=== PATIENT | male | born 1965 | race Caucasian/White ===

== ENCOUNTER 2023-02-19 09:25 | Emergency (ER) | payer OTHER, SELFPAY ==
[2023-02-19 09:40] VITALS: BP 138/84; PULSE 71; RESP 14; TEMP 36.7; O2SAT 96
--- NOTE | 2023-02-19 09:46 | ED.EAR ---
HPI - Ear Problem General Chief complaint: Ear Stated complaint: right ear pain Source: patient Mode of arrival: ambulatory Limitations: no limitations History of Present Illness HPI Narrative: 57-year-old male presented for complaint of right ear pain. Onset 2 days. Endorses pain radiating into the right neck and jaw. Reports occasional tinnitus. Denies ear drainage, dizziness, sinus congestion or drainage trauma nausea vomiting, fevers or chills. Used one dose of antibiotic drops from sig other's previous prescription. MD Complaint: ear pain Related Data Home Medications Medication Instructions Recorded Confirmed atorvastatin 80 mg tablet 80 mg PO DAILY 02/19/23 02/19/23 losartan 25 mg tablet 25 mg PO DAILY 02/19/23 02/19/23 Allergies Allergy/AdvReac Type Severity Reaction Status Date / Time No Known Allergies Allergy Verified 02/19/23 10:00 Review of Systems Review of Systems: CONSTITUTIONAL: Denies malaise, chills, or fever. EYES: Denies visual changes, redness, or discharge. ENT: Denies rhinorrhea, congestion, sinus pain, and sore throat. Reports ear pain CARDIOVASCULAR: Denies chest pain, palpitations, or edema. RESPIRATORY: Denies cough or dyspnea. GASTROINTESTINAL: Denies abdominal pain, nausea, vomiting, diarrhea SKIN: Denies rash or itching. MUSCULOSKELETAL: Denies myalgia. NEUROLOGIC: Denies headache. All systems reviewed & are unremarkable except as noted in HPI and below PMFSH Past Medical History Medical History (Updated 02/19/23 @ 10:02 by Kesha Yung APRN) Diabetes Surgical History Surgical History (Updated 02/19/23 @ 09:48 by Kesha Yung APRN) History of nasal surgery Comments At time of signature, agree with nursing past medical, surgical, social and family history. There is no relevant family history pertinent to the presenting complaint Exam Narrative: GENERAL: Well-appearing, and in no acute distress. HEAD: Normocephalic EYES: PERRLA, conjunctivae clear ENT: Nares clear. Mucous membranes moist. Left TM pearly timmons with dull light reflex; Right canal erythematous with excess cerumen; mild right tragal tenderness. Oropharynx not erythematous without lesions. no drooling, no hoarseness, no trismus, uvula midline. NECK: Supple. No lymphadenopathy CHEST: Clear to auscultation, breath sounds equal. No wheezing, rhonchi, rales, or stridor. No respiratory distress, speaks in full sentences. HEART: Regular rate and rhythm. No murmur heard. SKIN: Warm, dry, no rash. NEURO: Alert and oriented x3. PSYCH: Normal mood and affect Course Course Emergency Course: Patient is aware of diagnosis, understands and agrees to treatment plan. Anticipatory guidance given. Patient agrees to follow-up as directed and is aware of reasons to seek care at the emergency department. Portions of this record may have been created with voice recognition software Level of Care: Express Care Visit Vital Signs Vital signs: Reviewed Procedures Ear Wax Removal Right Ear: Ear Wax Removal Date: 02/19/23 Cerumenolytic Used: other ( Equal parts warm water and hydrogen peroxide) Results: Re-examined: cerumen removed completely TM Examination: TM(s) erythematous Ear Canal Exam: atraumatic Patient Tolerated Procedure: well and no complications Technique: ear canal irrigated and ear canal curetted Additional Comments: large amount of soft cerumen removed from canal using irrigation and curette. Patient reported improvement in pain. TM erythematous, canal erythematous c/w AOM and OE. Medical Decision Making MDM Narrative Medical decision making narrative: large amount of soft cerumen removed from right canal using irrigation and curette. Patient reported improvement in pain. TM erythematous, canal erythematous c/w AOM and OE. Rxs reviewed. Advised supportive measures and signs/symptoms to go to the ER. Patient is appropriate for ou
[2023-02-19 11:25] VITALS: BP 138/84; PULSE 71; RESP 14; TEMP 36.7; O2SAT 96
== END 2023-02-19 10:06 | disposition home or self-care (01) ==
PROVIDERS: Emergency Provider Nurse Practitioner Family
DX: H60.91 Unspecified otitis externa, right ear (principal); H66.91 Otitis media, unspecified, right ear; H61.21 Impacted cerumen, right ear; E11.9 Type 2 diabetes mellitus without complications
CPT/HCPCS: 69210; 99213; G0463

== ENCOUNTER 2023-11-17 11:28 | Outpatient (CLI) | payer OTHER, SELFPAY ==
--- NOTE | 2023-11-17 13:17 | ECG_ITS ---
Test Date: 2023-11-17 13:32:21 Measurements Intervals [place] Rate: 78 P: 38 OH: 177 QRS: -14 QRSD: 103 T: 48 QT: 368 QTc: 421 Interpretive Statements SINUS RHYTHM LOW QRS VOLTAGE IN PRECORDIAL LEADS [QRS DEFLECTION < 1.0 mV IN CHEST LEADS] BORDERLINE ECG No previous ECG available for comparison Electronically Signed On 11-17-2023 15:27:39 CDT by Vincent Hart M.D.
[2023-11-17 13:52] LABS: Anion Gap 8 mmol/L (4-12); Blood Urea Nitrogen 19 mg/dL (9-20); Calcium 8.8 mg/dL (8.4-10.2); Carbon Dioxide 25 mmol/L (22-30); Chloride 105 mmol/L (98-107); Estimated Glomerular Filt Rate 57; Glucose 156 mg/dL (65-110); Sodium 138 mmol/L (137-145)
== END 2023-11-17 11:29 | disposition home or self-care (01) ==
PROVIDERS: Anesthesiology; Visit Provider Podiatrist Foot & Ankle Surgery
DX: E11.9 Type 2 diabetes mellitus without complications (principal); R94.31 Abnormal electrocardiogram [ECG] [EKG]
CPT/HCPCS: 36415; 80048; 93005

== ENCOUNTER 2023-11-23 01:37 | Day surgery (SDC) | payer OTHER, SELFPAY ==
[2023-11-16 11:51] VITALS: BMI 40.8
--- NOTE | 2023-11-16 11:58 | PC.NURSE ---
Report to the Outpatient Waiting Room, entrance under the green pavilion located off [facility], at time _0900_ on date _[id number]_. Planned Procedure Time: _1100_. Time changes happen often and if your time is changed the preop area will call you the afternoon before. - You and your visitor will be asked to self-screen and do not enter if you have any COVID symptoms. - A mask is optional within the hospital at this time. Patients may have clear liquids (water, carbonated beverages, clear teas, apple juice) until 3 hours prior to surgery with a maximum of 20 ounces. - No food from midnight until time of surgery Take the following medications with a SIP of water the morning of surgery: ___None DO NOT STOP ANY OF YOUR OTHER PRESCRIPTION MEDICATIONS PRIOR TO SURGERY ?EXCEPT THE FOLLOWING Medications to discontinue per physician __Patient per Dr Fernandez's instructions is holding Ozempic 11-17-2023, Stopped aspirin 11-15-2023 and per my instructions will hold Multivitamin and Fish oil starting 11-20-2023. Please no make-up, nail pitcairn islander, hairspray, perfume, deodorant, or body powder the day of surgery. No jewelry (including any body piercings) or valuables the day of surgery, leave them at home. Please take a shower or bath the night before, or the morning of, surgery with an antibacterial soap. Wear comfortable, loose fitting clothing. - Jewelry must be removed prior to entering the operating room. Rings and piercings that are not removed may be cut off. - The hospital will not accept responsibility for valuables. - Please leave all valuables, including medications, at home the day of surgery. If you are going home after surgery, a licensed courier driver must drive you home. - NO public transportation without another adult if you receive anesthesia. - We recommend that an adult stay with you for 24 hours following discharge. - We also recommend that you do not drive, make important decision, drink alcoholic beverages, or take any drugs that were not prescribed by your health care provider for at least 24 hours after your discharge time. Follow any additional instructions given to you from your surgeon. If you or anyone in your household have experienced Covid symptoms in the past week, please notify your surgeon or the nurse liaison at the phone number below for possible testing. Telephone instructions given to _Robert___and asked if any additional questions and then verbalized understanding. Patient advised to call surgeon office or pre surgery nurse liaison [phone] if any additional questions.
[2023-11-23 09:17] VITALS: BP 119/77; PULSE 80; RESP 18; TEMP 36.6; O2SAT 98
[2023-11-23 09:45] LABS: Glucose Point of Care 143 mg/dl (65-105)
[2023-11-23] MEDS: LACTATED RINGERS 1,000 ML 30 ML IV CONT ×2 (09:45→12:13)
--- NOTE | 2023-11-23 10:00 | P.PNAN_ITS ---
Anes - Initial Pre Proc Eval Procedure: Operation Date: 11/23/23 11:00 Proposed Procedures p Removal of Nail and Destruction of Nailbed First, Second, and Third Toes on Left and First and Second Toes on Right - Brayan Fernandez DPM Date/Time: 11/23/23 10:00 Surgeon: Brayan Fernandez DPM Pre Op Diagnosis: ingrown toenail Patient Data Age: 58 Gender: M Height: 1.7 m Weight: 116.8 kg Last Vital Signs Temp 36.6 C 11/23/23 09:17 Pulse 80 11/23/23 09:17 Resp 18 11/23/23 09:17 BP 119/77 11/23/23 09:17 Pulse Ox 98 11/23/23 09:17 O2 Del Method Room Air 11/23/23 09:17 Allergies Allergy/AdvReac Type Severity Reaction Status Date / Time No Known Allergies Allergy Verified 11/23/23 09:24 Home Medications Medication Instructions Recorded Confirmed Type aspirin 81 mg tablet 81 mg PO DAILY 11/16/23 11/23/23 History empagliflozin 25 mg tablet 25 mg PO QAM 11/16/23 11/23/23 History multivitamin 1 tablet PO DAILY 11/16/23 11/23/23 History omega 3-toj-yxl-fish oil 1,200 mg 1 cap PO DAILY 11/16/23 11/23/23 History (144 mg-216 mg) capsule (Fish Oil) semaglutide 2 mg/dose (8 mg/3 mL) 2 mg subcut WEEKLY 11/16/23 11/23/23 History subcutaneous pen injector (Ozempic) Laboratory Tests 11/23/23 09:42 POC Capillary Glucose 143 H mg/dl (65-105) Patient hx anesthesia problems: none Family hx anesthesia problems: none Results Review: All pre-operative results and documents have been reviewed as part of the pre- operative evaluation. [facility] Past Medical History Medical History Diabetes Surgical History Surgical History History of nasal surgery Social History Social History Smoking status: Never smoker Living arrangements: with family Spiritual care concerns: No Anes - Eval Final PreProcedure Day of Procedure 11/23/23 10:00 Patient weight: morbidly obese Heart: regular rate and rhythm Lungs: clear to auscultation Airway: Mallampati scale class II Neurological: alert and oriented Last oral intake: >/= 8 hours ASA classification: III Emergent: no Anesthetic plan: proceed Anesthesia type and monitoring: general LMA and standard monitoring Results Review: All pre-operative results and documents have been reviewed as part of the pre- operative evaluation. Informed Consent: The patient's anesthetic plan and its attendant risks and benefits were discussed with the patient/family/POA. Questions were solicited and answers provided to the satisfaction of the patient/family/POA.
--- NOTE | 2023-11-23 10:40 | WPDHPUPDATE1 ---
History and Physical Update Update Date/Time: 11/23/23 10:40 History and Physical has been reviewed, including an updated exam of the patient. There are NO changes in the patient's condition. Risks, benefits, and alternatives have been discussed and questions answered. Patient agrees to proceed with procedure.
[2023-11-23] MEDS: ceFAZolin 2 GM/D5W 50 ML 2 GM/50 ML BAG IVPB (11:26)
[2023-11-23] MEDS: LIDOCAINE HCL 2% LOCAL INJ 20 ML VIAL INFILTRATE (11:43)
--- NOTE | 2023-11-23 12:09 | W.PM.PROC2 ---
Procedure Note - Detailed Date of Procedure 11/23/23 Pre-op Diagnosis ingrown toenail Post-op Diagnosis Same Procedure Performed Removel of toenail with chemical matrixectomy 1-3 left and 1-2 right Surgeon Brayan Fernandez, [place] Anesthesia MAC Description of Procedure The patient was brought into the operating room and placed on the operating table in a supine position. Following MAC anesthesia local anesthesia was obtained around the affected toes bilaterally using 2% Lidocaine plain and 0.5% Marcaine plain. The foot was then scrubbed, prepped, and draped using aseptic manner. Esmark bandage was used to exsanguinate the patient?s great toe bilaterally and ankle tourniquets were inflated. Attention was then directed to the great toe left. The nail was freed from the nail bed using the elevator and then resected. Then phenol was applied to the nail bed for 40 sec x 4. This same procedure was then repeated on the 2, 3 toes left and 1,2 toes right. Wounds were flushed with isopropyl alcohol. Wounds were then covered with dry, sterile compressive dressing consisting of antibiotic ointment, steristrips, Adaptic, 4 x 4?s and Coban. Ankle tourniquets were deflated. Prompt hyperemic response noted to all digits of both feet. Patient tolerated procedure and anesthesia well, was transferred to the recovery room with vital signs stable and neurovascular status intact to all digits of both feet. Following a period of post-operative monitoring she will be discharged home with written and oral post-operative instructions.
[2023-11-23 12:13] VITALS: BP 117/78; PULSE 86; RESP 14; O2SAT 95
[2023-11-23 12:18] LABS: Glucose Point of Care 115 mg/dl (65-105)
[2023-11-23 12:40] VITALS: BP 127/79; PULSE 78; RESP 16; O2SAT 93
[2023-11-23 13:10] VITALS: BP 135/91; PULSE 73; RESP 16
== END 2023-11-23 13:21 | disposition home or self-care (01) ==
PROVIDERS: Visit Provider Podiatrist Foot & Ankle Surgery
PROC: 0HBRXZZ Excision of Toe Nail, External Approach (ICD-10-PCS; CPT 11750; principal; 2023-11-23 11:00)
DX: L60.0 Ingrowing nail (principal); E11.9 Type 2 diabetes mellitus without complications; Z79.82 Long term (current) use of aspirin; Z79.84 Long term (current) use of oral hypoglycemic drugs; Z79.85 Long-term (current) use of injectable non-insulin antidiabetic drugs; E66.01 Morbid (severe) obesity due to excess calories; Z68.41 Body mass index [BMI] 40.0-44.9, adult
CPT/HCPCS: 11750; 82948; A9270; J0690; J1100; J2250; J2405; J2704; J3010; J7120